=== PATIENT | male | born 1955 | race Caucasian/White ===

== ENCOUNTER 2023-09-30 06:07 | Day surgery (SDC) | payer MEDICARE, OTHER, SELFPAY ==
[2023-09-20 13:58] VITALS: BMI 25.1
[2023-09-30] VITALS (14 sets, daily range): BP systolic 109–161; BP diastolic 58–88; PULSE 63–91; RESP 14–22; TEMP 36.2–36.7; O2SAT 93–99; BMI 23.8
--- NOTE | 2023-09-30 | DI.RAD.S_ITS ---
PROCEDURE: XR HIP W PEL IF DONE RT 4V INDICATIONS: anterior rt hip TECHNIQUE: AP pelvis with lateral view(s) of the right hip(s). COMPARISON: None. FINDINGS: Bones: Multiple intraoperative, fluoroscopic images demonstrate interval placement of right total hip arthroplasty, in near anatomic alignment IMPRESSION: Status post right total hip arthroplasty. Dictated by: Sonya Bhatt M.D. on 09/30/2023 at 15:19 Approved by: Sonya Bhatt M.D. on 09/30/2023 at 15:20 .
--- NOTE | 2023-09-30 06:00 | DI.RAD.S_ITS ---
PROCEDURE: XR HIP W PEL IF DONE RT 2V INDICATIONS: ANDREW TECHNIQUE: AP pelvis and lateral view of the hip acquired. COMPARISON: [facility] [place], CR, XR PELVIS WITH LATERAL HIP RIGHT, 07/29/2023, 11:07. [facility], CR, XR PELVIS WITH BILATERAL LATERAL HIPS, 07/01/2023, 11:03. [facility], CR, XR HIP W PEL IF DONE RT 4V, 09/30/2023, 9:08. FINDINGS: Bones: Patient is status post right hip arthroplasty, with hardware components in expected positions. The hip joint appears congruent. The visualized bony structures appear intact. Soft tissues: Overlying postoperative changes are noted. No suspicious soft tissue densities. IMPRESSION: Expected post-operative appearance of a hip arthroplasty. Dictated by: Maycol Tee M.D. on 09/30/2023 at 17:42 Approved by: Maycol Tee M.D. on 09/30/2023 at 17:42
[2023-09-30] MEDS: LACTATED RINGERS 1,000 ML 42 ML IV ×2 (06:54→09:37)
[2023-09-30] MEDS: MELOXICAM 7.5 MG TABLET PO (06:57)
[2023-09-30] MEDS: ACETAMINOPHEN 325 MG TABLET 975 MG PO (06:57)
--- NOTE | 2023-09-30 07:49 | PM.PREOP ---
Pre-operative Note Interval Note History & Physical reviewed/Exam performed by Physician: Yes Changes to H&P: No
[2023-09-30] MEDS: CEFAZOLIN 2 GM/100 ML PREMIX 100 ML IV ×3 (08:21→23:05)
[2023-09-30] MEDS: TRANEXAMIC ACID 1,000 MG VIAL 1000 MG INJ ×2 (08:21→09:35)
--- NOTE | 2023-09-30 08:51 | SUR.OPER ---
Supine on padded OR bed, head on pillow, arms secured on padded arm boards at <90 degrees abduction, legs uncrossed, safety belt at thigh, tape over blanket over lower legs.
[2023-09-30] MEDS: ROPIVACAINE/EPI/CLONIDINE/KET 50 ML SYRINGE INJ (09:00)
--- NOTE | 2023-09-30 09:51 | PM.OP.1 ---
Operative Date/Time/Diagnoses Date of procedure: 09/30/23 Pre-op diagnosis: Right hip osteoarthritis Post-op diagnosis: same Procedure & Clinicians Procedure: Right total hip arthroplasty Same procedure as scheduled: Yes Surgeon: Marlon Shelton Electric Repair Supervisor: Salvador Mccracken Anesthesia Type: General and Local Operative Notes Estimated Blood Loss (mL): 200 Procedure in detail: Right Uncemented Direct Anterior Total Hip Arthroplasty: Implants: Right Depuy Total Hip Arthroplasty: Depuy [place] Gription size 58 cup? Depuy Actis femoral stem size 7 high offset? 36 mm +5 ceramic femoral head? Procedure Summary: This 67-year-old male patient had significant osteophytes around his acetabulum which required resection in order to gain access with the initial reamers. His templated had indicated he would likely be appropriate for a 58 mm cup which was placed. This had a good pinch fit and did not require screws for supplemental fixation. Large inferior osteophytes were removed following cup placement. He weighs 175 lb and did not have an especially muscular thigh so no conjoined tendon release was necessary to gain access to the femoral canal. He had been templated for a 6 high stem, however this sank significantly below his neck cut so I upsized to a size 7. I initially trialed with a +1.5 head which was loose during reduction and could dislocate with external rotation. I therefore upsized to a +5 head trial. This had appropriate stability leg lengths offset so those implants were placed. Procedure in Detail: This patient was seen preoperatively and evaluated for hip pain which was refractory to numerous nonoperative treatment modalities. Their hip pain correlated with radiographic changes demonstrating significant degeneration in the hip joint. The risks and benefits of continued nonoperative management versus operative management were discussed at length and all of the patient?s questions were answered. Additional educational materials providing further details beyond our discussion in clinic were provided via a publicly available patient education video which included the incidence of medical complications associated with total hip arthroplasty, reasons for revision following total hip arthroplasty, and patient satisfaction rates following total hip arthroplasty. That video can be accessed at [email or web address] . With this understanding of the risks inherent to the procedure, the patient elected to move forward with operative management. Following preoperative optimization, the patient was scheduled for surgery. The patient was met in the preoperative holding area the day of the procedure and all questions were answered. The patient?s nares were swabbed with betadine in order to decolonize them from MRSA. Informed consent was signed and the operative limb was marked with indelible ink.? The patient was brought back to the operating room where anesthesia was induced. The patient was transferred to the [place] table and all bony prominences were padded. The operative site was prepped and draped in the usual sterile fashion. Prior to incision, tranexamic acid and cefazolin were administered. Operative templating images were displayed demonstrating the anticipated implant sizes and correct operative extremity. A timeout procedure was performed verifying the patient?s identity, medical comorbidities, allergies, relevant medications, anesthesia type and the surgical plan. All present were in agreement. The assistance of a physician assistant professor of forestry was required for positioning, room setup, soft tissue retraction and wound closure. Without this assistance, the procedure would have been significantly more challenging and time consuming.?? A direct anterior approach to the hip was utilized. This was performed with a longitudinal incision through a Heuter interval. The incision was planned 2 cm distal and 2 cm lateral to the ASIS extending towards the lateral patella, in line with the muscle body of the TFL. Following incision, the subcutaneous tissue was dissected while taking care to avoid injury to the lateral femoral cutaneous nerve. The fascia overlying the TFL was identified by dissecting off the overlying fat and identifying perforating vessels to the TFL. The TFL fascia was incised and dissected away from the medial border of the TFL. A cobra retractor was placed over the superior femoral neck between the abductors and the hip capsule and used to reflect the TFL laterally. A [place] self-retainer was then placed in the distal aspect of the wound between the TFL and the rectus femoris. This was tensioned to open up the direct anterior interval and the lateral circumflex vessels were identified and coagulated using electrocautery. The floor of the TFL fascia was incised, exposing the pericapsular fat overlying the hip capsule. A second cobra retractor was placed on the inferior femoral neck. A double-bent soft tissue retractor was placed on the anterior wall of the acetabulum and used to tension the reflected head of rectus femoris, which was then released in order to limit soft tissue tension. A capsulotomy was made in the midline of the anterior hip capsule in line with the femoral neck ending at the vastus tubercle. The double-bent retractor was removed in order to limit the amount of time that a soft tissue retractor remained on the anterior wall and protect the femoral nerve. Tag stitches were placed in the superior and inferior leaflets of the hip capsule. An [place] soft tissue retractor was introduced over the tag stitches and tensioned in the interval between the rectus femoris and the TFL in order to retract and protect those muscles. The cobra retractors were replaced intracapsularly, with one over the superior neck in the pocket created by the base of the greater trochanter and the other on the femoral head. The capsulotomy was extended laterally to the base of the greater trochanter and medially to the lesser trochanter. This required externally rotating the hip. Once the lesser trochanter had been identified, a neck cut was planned according to measurements from preoperative templating. A ruler was cut at the length measured between the superior aspect of the lesser trochanter and the collar of the prosthesis. This line was extended towards the inferior aspect of the lateral cobra retractor to plan a cut which would leave minimal residual femoral neck laterally. The neck was cut at 60 degrees of external rotation along that line. A second cut was performed to remove a large napkin ring and facilitate head extraction. The napkin ring cut and femoral head were removed.?? A broad anterior wall retractor was placed between the labrum and the anterior capsule so that the anterior capsule would prevent capturing and pinching the femoral nerve anteriorly. An additional retractor was placed on the posterior wall. External rotation and traction were applied through the [place] table so that the cut surface of the femoral neck would not restrict access to the acetabulum. The labrum was excised sharply and the pulvinar was excised with electrocautery to limit bleeding from branches of the obturator artery. Acetabular reamers were selected based on preoperative templating and measurements of the excised femoral head. These were introduced into the acetabulum. Fluoroscopy was utilized to replicate a standing AP pelvis radiograph by centering over the pelvis, rotating until there was appropriate symmetry between the obturator foramen, and introducing caudal tilt to match the position of the pubic symphysis relative to the sacrococcygeal junction according to the patient?s anatomy. Fluoroscopy was utilized to ensure appropriate reaming depth. Once satisfied with the reaming depth corresponding to the preoperative template and the pinch fit between the columns, an appropriate sized acetabular cup was selected which would provide 1 mm of press-fit. This cup was introduced and manipulated until appropriate abduction and anteversion angles were obtained with careful attention to appropriate abduction and anteversion angles as evaluated by the position of the cup relative to the anterior and posterior burrows of the acetabulum and the AP fluoroscopy which recreated the patient?s standing radiograph. The cup was impacted into place. Peripheral osteophytes were removed. The acetabular liner was then placed with care to ensure locking of the locking mechanism.? Attention was then turned to the femur. All retractors were removed, traction was released, a retractor was placed in the interval between the hip capsule and the gluteus minimus, and the hip was externally rotated to 90 degrees. Traction was applied through the [place] table to tension the lateral capsule and this was released using electrocautery. Traction was released and a [place] hook was placed posteriorly around the proximal femur at the level of the vastus ridge. The table height was lowered in order to restrict the tension on the anterior structures during hip hyperextension to limit the risk of femoral nerve palsy. With traction off and the hip at 90 degrees of external rotation, the hip was hyperextended and adducted while manually elevating the femur away from the acetabulum with the [place] hook to ensure it would not be caught behind the greater trochanter. An asymmetric retractor was placed over the calcar and a broad double-pronged retractor was placed over the greater trochanter. The tag stitch capturing the lateral leaflet of the capsule was moved to the medial side, leaving the conjoined and piriformis tendons isolated in the face of the greater trochanter. The hip was externally rotated and elevated. A release of the conjoined tendon was not necessary in order to obtain adequate exposure for broaching. The canal was opened with an opening broach and a rasp was used to remove cancellous bone. A rongeur was used to remove the residual lateral bone at the base of the greater trochanter to avoid placing the stem in varus. The femur was then broached to the appropriate sized stem yielding good rotational fit and fill of the canal as well as appropriate version of the stem trial. Neck and head trials were placed, all retractors were removed and the hip was returned to neutral abduction and extension. I then reduced the hip. An AP pelvis fluoroscopic image matching the preoperative standing radiograph was obtained with both lesser trochanters visible and both hips in 40 degrees of external rotation. This demonstrated appropriate leg lengths while using a long metal bar to trace across the transitional line to limit the effect of fluoroscopic distortion. An AP hip fluoroscopic image was obtained with the hip in neutral rotation which demonstrated appropriate canal fill. Hip stability was evaluated with 105 degrees of external rotation and a 45 degree drop test which demonstrated no instability. The hip was dislocated and I returned to the broaching position. The definitive stem was placed and the trunnion was cleaned and dried. I placed a ceramic head onto the trunnion and impacted it into place on the Vazquez taper.?? All retractors were removed and the hip was reduced. A dilute mixture of betadine and peroxide was used to bathe the soft tissues during final fluoroscopic assessment. Appropriate component positioning was confirmed on an AP pelvis radiograph with the operative and nonoperative legs in 40 degrees of external rotation, evaluating leg length and offset. Appropriate stem fill was evaluated on an AP hip radiograph with the operative leg in neutral rotation. No fractures were identified on these radiographs. Stability was satisfactory with a 105 degree external rotation test as well as a 45 degree drop test. The hip was copiously irrigated with pulse lavage. The capsule was closed with absorbable interrupted suture. The TFL fascia was closed with barbed suture while carefully protecting the lateral femoral cutaneous nerve from entrapment. A mixture of Ropivacaine, Epinephrine, Clonidine and Toradol was infiltrated throughout the soft tissues. The skin was closed with 2-0 and 3-0 sutures. Surgical glue was applied and a soft dressing was placed.??The sponge, instrument and needle counts were reported as being correct at the end of the case.??No obvious complications occurred. The patient was transferred from the [place] table back to a stretcher. The patient emerged from anesthesia without difficulty and was taken to the PACU in a stable condition.? Plan for aftercare: Anterior hip precautions Weightbearing as tolerated Aspirin 81 twice per day for DVT prophylaxis Multimodal pain regimen with no IV opioids ordered Patient is hopeful to discharge today. He lives in [place] and we will require a ferry trip home. The last ferry of the day today leaves at 8:20 p.m. If he has mobilized well with physical therapy and is otherwise doing well, we can try to get him discharged in time to get home on that boat. Follow up at [facility] in 2 weeks Detailed postoperative instructions available at [email or web address]
[2023-09-30] MEDS: hydrOXYzine 50 MG/ML INJ IM (10:23)
[2023-09-30] MEDS: OXYCODONE IR 5 MG TABLET PO (10:24)
[2023-09-30] MEDS: HYDROMORPHONE 1 MG INJ IV (10:24)
[2023-09-30] MEDS: ONDANSETRON 4 MG/2 ML INJ IV (10:24)
[2023-09-30] MEDS: LACTATED RINGERS 1,000 ML 100 ML IV (11:12)
[2023-09-30] MEDS: TRAMADOL 50 MG TABLET PO (11:12)
[2023-09-30] MEDS: IBUPROFEN 600 MG TABLET PO ×3 (11:12→23:05)
[2023-09-30] MEDS: ACETAMINOPHEN 325 MG TABLET 650 MG PO ×3 (11:13→23:06)
--- NOTE | 2023-09-30 14:57 | P.DS_ITS ---
History of Present Illness History of Present Illness Date Patient Seen: 09/30/23 Time Patient Seen: 14:57 Chief complaint: Hip pain Narrative: Hip pain is mild. Numbness tingling right has not yet been to urinate. Has not yet therapy. Patient has his home available to assist him. Discharge Providers Provider Discharge Date: 09/30/23 Primary care physician: Gary Land MD Consults: 09/22/23 12:43 Consult to Anesthesiology Routine Comment: Consulting Provider: Anesthesiologist Reason for consultation: PAC courstesy re: Abnormal pre-op EKG 09/30/23 06:00 Consult to Anesthesiology Routine Comment: Consulting Provider: Anesthesiologist Reason for consultation: Regional block for post operative pain control Has provider been notified: No 09/30/23 10:55 Consult to Discharge Planning Routine Comment: Consult to Occupational Therapy Evaluate & Treat Comment: Physician Instructions: Evaluate and treat Consult to Physical Therapy Evaluate & Treat Comment: Physician Instructions: post op ANDREW protocol Discharge provider: Salvador Mccracken PA-C Summary Hospital Course Discharge Diagnosis: Right hip osteoarthritis Hospital Course: Right total hip arthroplasty Same procedure as scheduled: Yes Surgeon: Marlon Shelton Rail Flaw Detector Operator: Salvador Mccracken Anesthesia Type: General and Local Operative Notes Estimated Blood Loss (mL): 200 Procedure in detail: Right Uncemented Direct Anterior Total Hip Arthroplasty: Implants: Right Depuy Total Hip Arthroplasty: * Depuy [place] Gription size 58 cup? * Depuy Actis femoral stem size 7 high offset? * 36 mm +5 ceramic femoral head? Patient admitted to the hospital for right total hip arthroplasty. Patient consented to the same. Patient underwent right total hip arthroplasty anterior approach this morning. Patient back in his room recover well as in stable condition. Patient will mobilize with physical therapy. Anterior hip precautions. Multimodal pain management. Keep dressing clean and dry. Aspirin 81 mg b.i.d. for DVT prophylaxis. Patient may be discharged home today after physical therapy if safe for home environment. Status at Discharge Cognitive/behavioral status at discharge: at baseline, oriented Functional status at discharge: uses cane/walker Overall status at discharge: patient is progressing back to baseline Exam Vital Signs (past 8 hours): - 09/30/23 10:07 09/30/23 10:12 09/30/23 10:26 Temperature 98.1 F 98.1 F 98.0 F Pulse Rate 69 69 69 Respiratory Rate 18 14 15 Blood Pressure 158/70 H 161/88 H 159/58 H Pulse Oximetry 97 98 96 Oxygen Delivery Method Room Air Room Air Room Air Oxygen Flow Rate 09/30/23 10:34 09/30/23 10:40 09/30/23 10:45 Temperature 97.8 F 97.4 F L Pulse Rate 71 66 79 Respiratory Rate 14 17 22 Blood Pressure 142/67 H 126/59 L 125/59 L Pulse Oximetry 97 98 97 Oxygen Delivery Method Room Air Room Air Oxygen Flow Rate 0 09/30/23 10:50 09/30/23 11:15 09/30/23 11:45 Temperature 97.4 F L 97.5 F L 97.6 F Pulse Rate 79 78 89 Respiratory Rate 14 18 16 Blood Pressure 125/59 L 129/68 137/80 Pulse Oximetry 97 93 99 Oxygen Delivery Method Oxygen Flow Rate 0 0 0 09/30/23 12:45 09/30/23 13:45 Temperature Pulse Rate 88 91 H Respiratory Rate 15 16 Blood Pressure 113/61 127/71 Pulse Oximetry 96 97 Oxygen Delivery Method Oxygen Flow Rate 0 0 Oxygen Delivery Method Room Air Oxygen Flow Rate 0 Narrative Exam Narrative: 67-year-old male resting comfortably in bed in no apparent distress. Dressing is clean, dry and intact. Motor functions intact distal right lower extremity. Sensation grossly intact to light touch right lower extremity. Const General: cooperative and comfortable Nutritional Appearance: average body habitus Orientation: alert Resp Effort & Inspection: normal respiratory effort and able to speak in complete sentences [facility] Medical History History of COVID-19 Osteoarthritis HLD (hyperlipidemia) HTN (hypertension) Surgical History Hx of hernia repair (2013) Social History household members: spouse Smoking Status: Former smoker alcohol intake: current Discharge Assessment & Plan Assessment and Plan Assessment: Patient progressing as expected Plan of Treatment: Weightbearing as tolerated, anterior hip precautions Aspirin 81 mg b.i.d. for DVT prophylaxis Multimodal pain management Patient will discharge home today after physical therapy if safe for home environment Discharge Plan Discharge Plan Patient Disposition: Home Discharge orders & Medications Discharge Orders: Discharge (Order); Ordered 09/30/23 Ordered By: Salvador Mccracken Prescriptions: Continued atorvastatin 80 mg Tablet 80 mg PO QPM lisinopril 40 mg Tablet 40 mg PO DAILY Follow up/Referrals: Marlon Shelton MD [Physician] - (Two weeks as scheduled) Gary Land MD [Primary Care Provider] - Diet/Activity/Treatments Diet: Diet as Tolerated Activity: Anterior hip precautions Other treatments: [email or web address] Skin/Wound/Dressing Care Report to your healthcare provider any signs of infection, such as:: chills, fever, night sweats, increased pain, unusual drainage and unusual redness Dressing: Keep dressing clean and dry Visit Report/Discharge Packet Instructions: DI for Hip Replacement, DI for Prescription Opioid Use Stand Alone Forms: Patient Portal/API, Surgery Discharge Discharge Data Primary Care Provider: Gary Land Attending Provider: Marlon Shelton
--- NOTE | 2023-09-30 15:21 | PM.PN.1 ---
Subjective Subjective Interval history: Patient seen postoperatively. Flexing and extending hallux ankle and knee. Dressing clean dry and intact. Pain well controlled. Ice in place. Patient very eager to go home today if at all possible. Still needs to work with physical therapy and have return of spontaneous voiding. The [place] back [place] leaves at 8:20 p.m. so if he is going to discharge home today we will need to have things done in time to get him onto the boat. We will continue working in that direction. Exam Vital Signs (past 8 hours): - 09/30/23 10:07 09/30/23 10:12 09/30/23 10:26 Temperature 98.1 F 98.1 F 98.0 F Pulse Rate 69 69 69 Respiratory Rate 18 14 15 Blood Pressure 158/70 H 161/88 H 159/58 H Pulse Oximetry 97 98 96 Oxygen Delivery Method Room Air Room Air Room Air Oxygen Flow Rate 09/30/23 10:34 09/30/23 10:40 09/30/23 10:45 Temperature 97.8 F 97.4 F L Pulse Rate 71 66 79 Respiratory Rate 14 17 22 Blood Pressure 142/67 H 126/59 L 125/59 L Pulse Oximetry 97 98 97 Oxygen Delivery Method Room Air Room Air Oxygen Flow Rate 0 09/30/23 10:50 09/30/23 11:15 09/30/23 11:45 Temperature 97.4 F L 97.5 F L 97.6 F Pulse Rate 79 78 89 Respiratory Rate 14 18 16 Blood Pressure 125/59 L 129/68 137/80 Pulse Oximetry 97 93 99 Oxygen Delivery Method Oxygen Flow Rate 0 0 0 09/30/23 12:45 09/30/23 13:45 Temperature Pulse Rate 88 91 H Respiratory Rate 15 16 Blood Pressure 113/61 127/71 Pulse Oximetry 96 97 Oxygen Delivery Method Oxygen Flow Rate 0 0 Oxygen Delivery Method Room Air Oxygen Flow Rate 0 PFSH Medical History History of COVID-19 Osteoarthritis HLD (hyperlipidemia) HTN (hypertension) Surgical History Hx of hernia repair (2013) Social History household members: spouse Smoking Status: Former smoker alcohol intake: current
--- NOTE | 2023-09-30 17:04 | PT.IIE ---
Current Diagnoses Unilateral primary osteoarthritis, right hip (09/30/23) Surgery Performed Operation Date: 09/30/23 07:45 Actual Procedures p Total Hip Arthroplasty/Anterior Approach(Right) - Marlon Shelton MD Surgical History (Last Reviewed 09/30/23 @ 15:01 by Salvador Mccracken PA-C) Hx of hernia repair (2013) Medical History (Last Reviewed 09/30/23 @ 15:01 by Salvador Mccracken PA-C) History of COVID-19 HLD (hyperlipidemia) HTN (hypertension) Osteoarthritis Physical Therapy Inpatient Evaluation/Re-Eval M1 PT/OT-IP Prior Functional Status Start: 09/30/23 17:55 Freq: NEEDED Status: Active Protocol: Document 09/30/23 17:04 DLM (Rec: 09/30/23 18:15 DLM [id number]) Medical Review Prior Functional Status Medical History Reviewed Yes Diet/Fluid Consistency Regular Communication glasses, WFL Mobility and Gait Independent without device, ambulates in community, hip pain had started limiting his activity tolerance Activities of Daily Living and IADL's Independent Prior Functional Level (Other details) 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 2 +1 step, no rails, platform between steps Home Environment Standard Height Toilet,High Toilet,Walk in Shower Home Equipment Front Wheel Walker,Straight Cane,Bedside Commode Employment Status Retired Additional Social History Comment recliner and couch he can sleep on on the first floor of house, bedroom and shower on second floor, half bath on main level His works. He attended out-pt PT before surgery. M2 PT-IP Current Condition Start: 09/30/23 17:55 Freq: NEEDED Status: Active Protocol: Document 09/30/23 17:04 DLM (Rec: 09/30/23 18:15 DLM [id number]) Physical Therapy Current Condition Current Condition Evaluation Date 09/30/23 Treatment Diagnosis right ANDREW with anterior approach, impaired gait Onset Date 09/30/23 M3 PT-IP Subjective Start: 09/30/23 17:55 Freq: NEEDED Status: Active Protocol: Document 09/30/23 17:04 DLM (Rec: 09/30/23 18:15 DLM [id number]) Subjective Physical Therapy Visit Type Type Initial Evaluation Visit Start Time 16:00 Visit Stop Time 17:04 Notes 64 minutes Number of CLAIM PROCESSOR Visits 0 Physical Therapy Visit Comments Patient Comments He is eager to go home today. He has not been able to urinate yet. They borrowed equipment for home from friends. Patient Goals Discharge home Therapy Pain Assessment Pain When Pain Assessed During Mobility Pain Present Pain Present Pain Reported Location Right Hip Intensity 3 Scale Used Numeric (0 - 10) Description Aching,Tender,With Movement Pain Behaviors Guarding Pain Management Techniques Apply Cold,Re-positioning M4 PT-IP Mobility and Gait Start: 09/30/23 17:55 Freq: NEEDED Status: Active Protocol: Document 09/30/23 17:04 DL (Rec: 09/30/23 18:15 [facility] [id number]) PT-Bed Mobility Assessment Supine to Sit Supine to Sit Independent Sit to Supine Sit to Supine Independent Scooting Scooting to Edge of Bed Independent Scooting Up and Down in Bed Independent PT-Transfer Assessment Sit to and From Stand Sit to and from Stand Independent,Use of Upper Extremities Equipment Transfer Assistive Device Gait Belt,Front Wheeled Walker Transfers Transfer Destination Bed,Chair Transfer Technique Stand Step Pivot Transfer Ability Level of Assist Standby Assistance,Use of Upper Extremities Comments Mobility Comments Pt up to toilet to attempt to urinate but was not able to void. Pt left up in the recliner this visit with his visiting. Gait Assessment Gait Gait Assistance Required: Standby Assistance Distance (Feet) 200 Able to Maintain Weight Bearing Status Yes During Gait Assistive Devices Assistive Device Gait Belt,Front Wheeled Walker Gait Deviations General Gait Pattern Decreased Stride Length,Step- to Gait Factors Limiting Gait Function Factors Limiting Gait Function Decreased Activity Tolerance, Decreased Strength,Limited Range of Motion,Pain,Poor Balance Comments Gait Comments He has a slow but safe gait pattern with the fWW, he tends to look down at his feet. Educated pt to look up during gait and use a slow but steady gait pattern. He showed improvements in the flow of his gait pattern with training . Stair Climbing Assessment Evaluation Level of Assist On Stairs Standby Assistance Devices Stair Climbing Assistive Devices Left Railing,Right Railing Technique/Endurance Stair Climbing Direction Ascend and Descend Stair Climbing Technique Step to Step Number of Steps Climbed 3 Query Text: Stair Climbing Set # Repetitions (reps) 1 Comments Stair Climbing Comments also up/down curb step with fWW and SBA Tolerated stairs well Discussed having his on one side and cane on the other when going up his front steps without a rail. PT-Balance Assessment Sitting Balance and Reactions Static Sitting Balance Ability Normal Dynamic Sitting Balance Ability Good Standing Balance and Reactions Static Standing Balance Ability Good Dynamic Standing Balance Ability Good Device Used FWW M5 PT-IP Objective Assessments Start: 09/30/23 17:55 Freq: NEEDED Status: Active Protocol: Document 09/30/23 17:04 DLM (Rec: 09/30/23 18:15 [facility] [id number]) Orientation Orientation/Cognition Level of Alertness Alert Orientation Name,Age,Birthday,Month,Date, Year,Day of Week,Place, Situation Language Function Ability No Deficits Noted Safety Awareness Understands Safety Issues Memory Description No Deficits Noted Gross Range of Motion Upper Extremity ROM Assessment Within Functional Limits Lower Extremity ROM Assessment Right Impaired Impairments anterior hip precautions Strength Upper Extremity Strength Assessment Within Functional Limits Lower Extremity Strength Assessment Right Impaired Hip flex at least 3+/5 with pain Knee 4/5 Ankle DF 5/5 Comments Strength Comments post-op pain right hip Coordination Assessment Gross Coordination Gross Coordination WNL Sensation Assessment Sensation Gross Sensation WNL Muscle Tone Muscle Tone WNL Yes M6 PT-IP Treatment Start: 09/30/23 17:55 Freq: NEEDED Status: Active Protocol: Document 09/30/23 17:04 DLM (Rec: 09/30/23 18:15 [facility] [id number]) Physical Therapy Treatment Education Education Provided Precautions,Weight Bearing Status,Post-Op Packet,Safety Other Treatments Other Treatment Performed his was present today and participated in education M7 PT-IP Assessment and Plan Start: 09/30/23 17:55 Freq: NEEDED Status: Active Protocol: Document 09/30/23 17:04 DLM (Rec: 09/30/23 18:15 DL [id number]) PT Summary Assessment and Plan Summary Impairments Pain,ROM,Strength,Balance, Transfers,Gait,Activity Tolerance Progress Towards Goals Safe For Discharge Assessment Summary Primo is alert and eager to go home after surgery. He was educated in his post-op precautions and home exercise program. He was able to ambulate in the [place] with the FWW and a slow but safe gait pattern. He was able to go up and down stairs with good tolerance. He verbalizes understanding of his hip precautions. Pt and his feel safe for pt to go home today. Recommend home when medically cleared. Informed his nurse that pt is cleared by Physical Therapy for discharge home. Pt has not been able to urinate yet which may delay his discharge today . Frequency of Treatment Frequency Of Treatment Discharge Treatment Plan Other Recommendations and Next Treatment completed training and Focus education this visit Precautions Anterior Hip Precautions No Hip Extension Weight Bearing Status Weight Bearing Status Weight Bear as Tolerated Allowed Weight Bearing Amount (enter % right LE with fWW or #) (%) Recommendations To Nursing Amount of Assist Needed Standby Assistance Discharge Recommendations PT Discharge Recommendations Home with Assistance, Outpatient PT Other Discharge Recommendations home with his to assist as needed Transportation Needs at Discharge Private Vehicle
--- NOTE | 2023-09-30 17:04 | PT.IIE ---
Current Diagnoses Unilateral primary osteoarthritis, right hip (09/30/23) Surgery Performed Operation Date: 09/30/23 07:45 Actual Procedures p Total Hip Arthroplasty/Anterior Approach(Right) - Marlon Shelton MD Surgical History (Last Reviewed 09/30/23 @ 15:01 by Salvador Mccracken PA-C) Hx of hernia repair (2013) Medical History (Last Reviewed 09/30/23 @ 15:01 by Salvador Mccracken PA-C) History of COVID-19 HLD (hyperlipidemia) HTN (hypertension) Osteoarthritis Physical Therapy Inpatient Evaluation/Re-Eval M1 PT/OT-IP Prior Functional Status Start: 09/30/23 17:55 Freq: NEEDED Status: Active Protocol: Document 09/30/23 17:04 DLM (Rec: 09/30/23 18:15 DLM [id number]) Medical Review Prior Functional Status Medical History Reviewed Yes Diet/Fluid Consistency Regular Communication glasses, WFL Mobility and Gait Independent without device, ambulates in community, hip pain had started limiting his activity tolerance Activities of Daily Living and IADL's Independent Prior Functional Level (Other details) 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 2 +1 step, no rails, platform between steps Home Environment Standard Height Toilet,High Toilet,Walk in Shower Home Equipment Front Wheel Walker,Straight Cane,Bedside Commode Employment Status Retired Additional Social History Comment recliner and couch he can sleep on on the first floor of house, bedroom and shower on second floor, half bath on main level His works. He attended out-pt PT before surgery. M1 PT/OT-IP Prior Functional Status Start: 09/30/23 17:56 Freq: NEEDED Status: Active Protocol: Document 09/30/23 17:56 [facility] (Rec: 09/30/23 18:08 [facility] [id number]) Medical Review Prior Functional Status Communication Independent Mobility and Gait Independent with no device. Activities of Daily Living and IADL's Pt able to do ADL and IADL needs. Social History Household Members spouse Living Arrangements House Number of Floors (Floors) Two Floors Number of Stairs To Enter/Railing? 2 step and then another platform step to get into the house. Pt to stay on the main level. Home Environment Walk in Shower Home Equipment Front Wheel Walker,Straight Cane,Bedside Commode M2 PT-IP Current Condition Start: 09/30/23 17:55 Freq: NEEDED Status: Active Protocol: Document 09/30/23 17:04 DLM (Rec: 09/30/23 18:15 DL [id number]) Physical Therapy Current Condition Current Condition Evaluation Date 09/30/23 Treatment Diagnosis right ANDREW with anterior approach, impaired gait Onset Date 09/30/23 M3 PT-IP Subjective Start: 09/30/23 17:55 Freq: NEEDED Status: Active Protocol: Document 09/30/23 17:04 DLM (Rec: 09/30/23 18:15 DL [id number]) Subjective Physical Therapy Visit Type Type Initial Evaluation Visit Start Time 16:00 Visit Stop Time 17:04 Notes 64 minutes Number of TRAINER Visits 0 Physical Therapy Visit Comments Patient Comments He is eager to go home today. He has not been able to urinate yet. They borrowed equipment for home from friends. Patient Goals Discharge home Therapy Pain Assessment Pain When Pain Assessed During Mobility Pain Present Pain Present Pain Reported Location Right Hip Intensity 3 Scale Used Numeric (0 - 10) Description Aching,Tender,With Movement Pain Behaviors Guarding Pain Management Techniques Apply Cold,Re-positioning M4 PT-IP Mobility and Gait Start: 09/30/23 17:55 Freq: NEEDED Status: Active Protocol: Document 09/30/23 17:04 DLM (Rec: 09/30/23 18:15 DL [id number]) PT-Bed Mobility Assessment Supine to Sit Supine to Sit Independent Sit to Supine Sit to Supine Independent Scooting Scooting to Edge of Bed Independent Scooting Up and Down in Bed Independent PT-Transfer Assessment Sit to and From Stand Sit to and from Stand Independent,Use of Upper Extremities Equipment Transfer Assistive Device Gait Belt,Front Wheeled Walker Transfers Transfer Destination Bed,Chair Transfer Technique Stand Step Pivot Transfer Ability Level of Assist Standby Assistance,Use of Upper Extremities Comments Mobility Comments Pt up to toilet to attempt to urinate but was not able to void. Pt left up in the recliner this visit with his visiting. Gait Assessment Gait Gait Assistance Required: Standby Assistance Distance (Feet) 200 Able to Maintain Weight Bearing Status Yes During Gait Assistive Devices Assistive Device Gait Belt,Front Wheeled Walker Gait Deviations General Gait Pattern Decreased Stride Length,Step- to Gait Factors Limiting Gait Function Factors Limiting Gait Function Decreased Activity Tolerance, Decreased Strength,Limited Range of Motion,Pain,Poor Balance Comments Gait Comments He has a slow but safe gait pattern with the fWW, he tends to look down at his feet. Educated pt to look up during gait and use a slow but steady gait pattern. He showed improvements in the flow of his gait pattern with training . Stair Climbing Assessment Evaluation Level of Assist On Stairs Standby Assistance Devices Stair Climbing Assistive Devices Left Railing,Right Railing Technique/Endurance Stair Climbing Direction Ascend and Descend Stair Climbing Technique Step to Step Number of Steps Climbed 3 Query Text: Stair Climbing Set # Repetitions (reps) 1 Comments Stair Climbing Comments also up/down curb step with fWW and SBA Tolerated stairs well Discussed having his on one side and cane on the other when going up his front steps without a rail. PT-Balance Assessment Sitting Balance and Reactions Static Sitting Balance Ability Normal Dynamic Sitting Balance Ability Good Standing Balance and Reactions Static Standing Balance Ability Good Dynamic Standing Balance Ability Good Device Used FWW M5 PT-IP Objective Assessments Start: 09/30/23 17:55 Freq: NEEDED Status: Active Protocol: Document 09/30/23 17:04 DL (Rec: 09/30/23 18:15 [facility] [id number]) Orientation Orientation/Cognition Level of Alertness Alert Orientation Name,Age,Birthday,Month,Date, Year,Day of Week,Place, Situation Language Function Ability No Deficits Noted Safety Awareness Understands Safety Issues Memory Description No Deficits Noted Gross Range of Motion Upper Extremity ROM Assessment Within Functional Limits Lower Extremity ROM Assessment Right Impaired Impairments anterior hip precautions Strength Upper Extremity Strength Assessment Within Functional Limits Lower Extremity Strength Assessment Right Impaired Hip flex at least 3+/5 with pain Knee 4/5 Ankle DF 5/5 Comments Strength Comments post-op pain right hip Coordination Assessment Gross Coordination Gross Coordination WNL Sensation Assessment Sensation Gross Sensation WNL Muscle Tone Muscle Tone WNL Yes M6 PT-IP Treatment Start: 09/30/23 17:55 Freq: NEEDED Status: Active Protocol: Document 09/30/23 17:04 DL (Rec: 09/30/23 18:15 [facility] [id number]) Physical Therapy Treatment Education Education Provided Precautions,Weight Bearing Status,Post-Op Packet,Safety Other Treatments Other Treatment Performed his was present today and participated in education M7 PT-IP Assessment and Plan Start: 09/30/23 17:55 Freq: NEEDED Status: Active Protocol: Document 09/30/23 17:04 DLM (Rec: 09/30/23 18:15 DLM [id number]) PT Summary Assessment and Plan Summary Impairments Pain,ROM,Strength,Balance, Transfers,Gait,Activity Tolerance Progress Towards Goals Safe For Discharge Assessment Summary Primo is alert and eager to go home after surgery. He was educated in his post-op precautions and home exercise program. He was able to ambulate in the [place] with the FWW and a slow but safe gait pattern. He was able to go up and down stairs with good tolerance. He verbalizes understanding of his hip precautions. Pt and his feel safe for pt to go home today. Recommend home when medically cleared. Informed his nurse that pt is cleared by Physical Therapy for discharge home. Pt has not been able to urinate yet which may delay his discharge today . Frequency of Treatment Frequency Of Treatment Discharge Treatment Plan Other Recommendations and Next Treatment completed training and Focus education this visit Precautions Anterior Hip Precautions No Hip Extension Weight Bearing Status Weight Bearing Status Weight Bear as Tolerated Allowed Weight Bearing Amount (enter % right LE with fWW or #) (%) Recommendations To Nursing Amount of Assist Needed Standby Assistance Discharge Recommendations PT Discharge Recommendations Home with Assistance, Outpatient PT Other Discharge Recommendations home with his to assist as needed Transportation Needs at Discharge Private Vehicle
[2023-09-30] MEDS: ATORVASTATIN 20 MG TABLET 80 MG PO (17:09)
--- NOTE | 2023-09-30 17:38 | OT.IP.EVAL ---
Current Diagnoses Unilateral primary osteoarthritis, right hip (09/30/23) Surgery Performed Operation Date: 09/30/23 07:45 Actual Procedures p Total Hip Arthroplasty/Anterior Approach(Right) - Marlon Shelton MD Past Medical History (Last Reviewed 09/30/23 @ 15:01 by Salvador Mccracken PA-C) History of COVID-19 HLD (hyperlipidemia) HTN (hypertension) Osteoarthritis Surgical History (Last Reviewed 09/30/23 @ 15:01 by Salvador Mccracken PA-C) Hx of hernia repair (2013) Occupational Therapy Inpatient Evaluation/Re-Eval M1 PT/OT-IP Prior Functional Status Start: 09/30/23 17:56 Freq: NEEDED Status: Active Protocol: Document 09/30/23 17:56 [facility] (Rec: 09/30/23 18:08 [facility] [id number]) Medical Review Prior Functional Status Communication Independent Mobility and Gait Independent with no device. Activities of Daily Living and IADL's Pt able to do ADL and IADL needs. Social History Household Members spouse Living Arrangements House Number of Floors (Floors) Two Floors Number of Stairs To Enter/Railing? 2 step and then another platform step to get into the house. Pt to stay on the main level. Home Environment Walk in Shower Home Equipment Front Wheel Walker,Straight Cane,Bedside Commode M2 OT-IP Current Condition Start: 09/30/23 17:56 Freq: Status: Active Protocol: Document 09/30/23 17:56 [facility] (Rec: 09/30/23 18:08 [facility] [id number]) Occupational Therapy Current Condition Current Condition Evaluation Date 09/30/23 Treatment Diagnosis S/P R ANDREW Anterior approach Diagnosis Onset Date 09/30/23 Post Operative Precautions Anterior Hip Precautions No Hip Extension,No Hip External Rotation M3 OT- IP Subjective and Pain Start: 09/30/23 17:56 Freq: Status: Active Protocol: Document 09/30/23 17:56 [facility] (Rec: 09/30/23 18:08 [facility] [id number]) OT- Subjective Occupational Therapy Visit Type Type Initial Evaluation Visit Start Time 17:10 Visit Stop Time 17:28 Occupational Therapy Visit Comments Patient Comments Pt wanting to try to use the bathroom. Patient/Caregiver Goals TO go home. OT Pain Assessment Pain When Pain Assessed During Mobility Pain Present Pain Present Pain Reported M4 OT- IP ADL's Start: 09/30/23 17:56 Freq: Status: Active Protocol: Document 09/30/23 17:56 [facility] (Rec: 09/30/23 18:08 [facility] [id number]) OT SFB-Guul-Ijotakp General Evaluation Self-Feeding Ability Independent OT ADL-Grooming General Evaluation Grooming Ability Independent OT ADL-Dressing General Eval Lower Body Dressing Ability Maximum Assistance Areas Needing Assistance Socks Comments OT Dressing Comments Able to show pt use of sock aid and cigarette packer, pt states his to assist. Educated to be mindful of his RLE positioning for ADl and mobility needs. OT ADL-Toileting General Evaluation Toileting Ability Standby Assistance Comments OT Toileting Comments Pt standing and then trying to sit to urinate but unsuccessful. OT ADL-Bathing Comments OT Bathing Comments Pt states shower too small for a shower chair. Educated on care for his dressing while showering. Pt's states will asisst. M5 OT- IP IADL's Start: 09/30/23 17:56 Freq: Status: Active Protocol: Document 09/30/23 17:56 [facility] (Rec: 09/30/23 18:08 [facility] [id number]) OT-Instrumental Activities of Daily Living Deficits IADL Deficits Identified Deficits Home Safety Awareness Awareness of Need for Assistance at Home Good Awareness Ability to Problem Solve Emergency Able to Problem Solve Situations Medication Management Medication Management No Deficits Identified Money Management Money Management No Deficits Identified Meal Preparation Meal Preparation Caregiver Provides Assist Rock Worker Rock Worker Caregiver Provides Assist M6 OT- IP Functional Cognition Start: 09/30/23 17:56 Freq: Status: Active Protocol: Document 09/30/23 17:56 [facility] (Rec: 09/30/23 18:08 [facility] [id number]) Cognitive Factors Limiting Selfcare Function Cognitive Ability Level of Alertness Alert Patient Orientation Name,Age,Birthday,Month,Date, Year,Day of Week,Place, Situation Attention Span Ability Capable of Focused Attention, Capable of Sustained Attention Memory Description No Deficits Noted Safety Awareness Decreased Ability to Apply Precautions Cognitive Comments Cognitive Assessment Comments At time pt needing vc to follow his hip precautions for mobility of which leg to advance first. OT- Vision and Hearing OT- Hearing Assessment OT- Hearing Assessment WFL OT- Vision Assessment Visual Acuity Glasses All The Time M7 OT- IP Mobility and Balance Start: 09/30/23 17:56 Freq: Status: Active Protocol: Document 09/30/23 17:56 [facility] (Rec: 09/30/23 18:08 [facility] [id number]) OT-Transfer Assessment Sit to and From Stand Sit to and from Stand Standby Assistance Transfers Transfer Ability Standby Assistance Technique Transfer Destination Bed,Toilet Transfer Technique Stand Step Pivot Devices Transfer Assistive Devices Gait Belt,Front Wheeled Walker Comments Mobility Comments SBA with mobility need and use of the fww. OT- Balance Assessment Sitting Balance and Reactions Static Sitting Balance Ability Normal Dynamic Sitting Balance Ability Good Standing Balance and Reactions Static Standing Balance Ability Good Dynamic Standing Balance Ability Fair M8 OT- IP Objective Assessments Start: 09/30/23 17:56 Freq: Status: Active Protocol: Document 09/30/23 17:56 [facility] (Rec: 09/30/23 18:08 [facility] [id number]) OT Gross Range of Motion Upper Extremity Range of Motion Assessment Within Functional Limits OT Strength Upper Extremity Strength Assessment Within Functional Limits M9 OT- IP Assessment and Plan Start: 09/30/23 17:56 Freq: Status: Active Protocol: Document 09/30/23 17:56 [facility] (Rec: 09/30/23 18:08 [facility] [id number]) OT Summary Assessment and Plan Potential Rehabilitation Potential Excellent Analytic Complexity at Evaluation Low Summary OT Impairments Pain,Functional Mobility, Dressing,Toileting,Bathing, Toilet Transfers,Shower Transfers Progress Towards Goals Progressing Toward Goals,Slow Progress due to Medical Issues Assessment Summary Pt low complexity and doing well and mainly just wanting to urinate prior to going home . Pt has a supportive to assist him at this time. Pt to go home with his and have outpt PT. Goals Grooming Goal Independent Dressing Goal Independent,Orchard Worker,Sock Aid Toileting Goal Independent Bathing Goal Standby Assistance Toilet Transfer Goal Independent Shower Transfer Goal Independent Frequency of Treatment Frequency Of Treatment Once a Day Treatment Plan OT Treatment Plan ADL Training,Functional Mobility,Patient/Family Education,Discharge Planning Discharge Recommendations OT Discharge Recommendations Home with Assistance, Outpatient PT Transportation Needs at Discharge Private Vehicle
[2023-09-30] MEDS: DOCUSATE 100 MG CAPSULE PO (20:25)
[2023-09-30] MEDS: ASPIRIN EC 81 MG TABLET PO (20:25)
[2023-09-30] MEDS: TAMSULOSIN 0.4 MG CAPSULE PO (20:25)
[2023-10-01 03:30] VITALS: BP 112/63; PULSE 60; RESP 16; TEMP 36.1; O2SAT 98
[2023-10-01] MEDS: IBUPROFEN 600 MG TABLET PO (04:24)
[2023-10-01] MEDS: ACETAMINOPHEN 325 MG TABLET 650 MG PO (04:24)
[2023-10-01 05:41] LABS: Hematocrit 32.6 % (41-53); Hemoglobin 11.2 g/dL (13.5-17.5)
[2023-10-01 08:22] VITALS: BP 126/57; PULSE 66; RESP 17; TEMP 35.8; O2SAT 98
[2023-10-01] MEDS: DOCUSATE 100 MG CAPSULE PO (09:11)
[2023-10-01] MEDS: ASPIRIN EC 81 MG TABLET PO (09:11)
--- NOTE | 2023-10-01 09:21 | OT.IPNOTE ---
Pt doing well and finally able to urinate. No OT needs, discharge pt from OT.
[2023-10-01 09:41] VITALS: PULSE 89; RESP 14; O2SAT 98
--- NOTE | 2023-10-01 10:21 | P.DS_ITS ---
History of Present Illness History of Present Illness Chief complaint: Hip pain Narrative: Primo is a very pleasant 67-year-old male who is postop day # 1 status post right anterior total hip arthroplasty by Dr. Shelton. Patient states he is doing very well this morning and is eager to be discharged to home. He had acute urinary retention yesterday and had to be straight cathed last night but now reports he has urinated on his own 5 times this morning and no longer needs assistance or the walker to ambulate to the bathroom. He even urinated again during our interview this morning. Pain is [id number] and well controlled with oral pain medication. He has his postop pain medication at home already and has postop physical therapy appointments scheduled as well. Has not worked with hospital PT today but worked with them yesterday and did well, was only kept in the hospital due to the urinary retention. Lives at home with is willing and able to aid in patient's postop recovery. His ice machine, walker at home already. He denies fever, chills, chest pain, shortness breath, nausea, vomiting. Operative Date/Time/Diagnoses Date of procedure: 09/30/23 Pre-op diagnosis: Right hip osteoarthritis Post-op diagnosis: same Procedure & Clinicians Procedure: Right total hip arthroplasty Same procedure as scheduled: Yes Surgeon: Marlon Shelton Turbine Mechanic: Salvador Mccracken Anesthesia Type: General and Local Operative Notes Estimated Blood Loss (mL): 200 Procedure in detail: Right Uncemented Direct Anterior Total Hip Arthroplasty: Implants: Right Depuy Total Hip Arthroplasty: * Depuy [place] Gription size 58 cup? * Depuy Actis femoral stem size 7 high offset? * 36 mm +5 ceramic femoral head? Discharge Providers Provider Discharge Date: 10/01/23 Primary care physician: Gary Land MD Consults: 09/22/23 12:43 Consult to Anesthesiology Routine Comment: Consulting Provider: Anesthesiologist Reason for consultation: PAC courstesy re: Abnormal pre-op EKG 09/30/23 06:00 Consult to Anesthesiology Routine Comment: Consulting Provider: Anesthesiologist Reason for consultation: Regional block for post operative pain control Has provider been notified: No 09/30/23 10:55 Consult to Discharge Planning Routine Comment: Consult to Occupational Therapy Evaluate & Treat Comment: Physician Instructions: Evaluate and treat Consult to Physical Therapy Evaluate & Treat Comment: Physician Instructions: post op ANDREW protocol Discharge provider: Milagros Valencia PA-C Summary Hospital Course Discharge Diagnosis: stable s/p right anterior ANDREW Hospital Course: For course complicated by acute urinary retention postop. Exam Vital Signs (past 8 hours): - 10/01/23 03:30 10/01/23 08:22 10/01/23 09:41 Temperature 96.9 F L 96.5 F L Pulse Rate 60 66 89 Respiratory Rate 16 17 14 Blood Pressure 112/63 126/57 L Pulse Oximetry 98 98 98 Oxygen Delivery Method Room Air Oxygen Flow Rate 0 Oxygen Delivery Method Room Air Oxygen Flow Rate 0 Narrative Exam Narrative: Ambulating well without assistive devices around the room when I arrived to patient's room this morning. at bedside. No acute distress. Resp Effort & Inspection: normal respiratory effort and able to speak in complete sentences Cardio Rate: regular rate Other: Brisk capillary refill. Skin Other: Clean, dry, intact Aquacel dressing in place over the right anterior hip. No drainage. Extrem Other: 5/5 DF, PF, EHL bilaterally. Calf soft and nontender bilaterally. Gross sensation intact throughout bilateral lower extremities. Psych Appearance: grossly normal Speech and Movement: speech and movement normal Objective Labs 10/01/23 05:00 Labs: Laboratory Results - last 24 hr 10/01/23 05:00 Hgb 11.2 L Hct 32.6 L PFSH Medical History History of COVID-19 Osteoarthritis HLD (hyperlipidemia) HTN (hypertension) Surgical History Hx of hernia repair (2013) Social History household members: spouse Smoking Status: Former smoker alcohol intake: current Discharge Assessment & Plan Assessment and Plan Assessment: Stable status post right anterior total hip arthroplasty. Plan of Treatment: 1) plan to discharge to home today with . 2) continue multimodal pain management with ice to the hip for additional pain control. Has postop pain medications at home already. 3) ASA b.i.d. for DVT prophylaxis. 4) Start outpatient physical therapy to work on range of motion and mobility. Postop PT appointments are already scheduled with [facility]. Weightbearing as tolerated, maintain anterior hip precautions. 5) keep dressing intact, clean, dry until 2 week postop appointment. No soaking the incision site in pools or tubs. No topical ointments or creams to the incision site. 5) Follow up at [facility] in 2 weeks for a postop appointment and wound check. All patient's questions were answered, they demonstrates understanding and are in agreement with the plan. Call our office if any questions or concerns arise. Discharge Plan Discharge Plan Patient Disposition: Home Discharge orders & Medications Discharge Orders: Discharge (Order); Ordered 10/01/23 Ordered By: Milagros Valencia Prescriptions: Continued atorvastatin 80 mg Tablet 80 mg PO QPM lisinopril 40 mg Tablet 40 mg PO DAILY Follow up/Referrals: Marlon Shelton MD [Physician] - (Follow up at [facility] in two weeks as scheduled) Gary Land MD [Primary Care Provider] - Diet/Activity/Treatments Diet: Diet as Tolerated Activity: Weight bearing as tolerated. Maintain anterior hip precautions. Cold/Heat Therapy: Ice to the hip for additional pain control. Other treatments: [email or web address] Skin/Wound/Dressing Care Report to your healthcare provider any signs of infection, such as:: chills, fever, night sweats, unusual drainage and unusual redness Dressing: Keep dressing clean and dry until 2 week post-op appointment. No soaking the incision site in pools. Visit Report/Discharge Packet Instructions: DI for Hip Replacement, DI for Prescription Opioid Use Stand Alone Forms: Patient Portal/API, Surgery Discharge Discharge Data Primary Care Provider: Gary Land Attending Provider: Marlon Shelton
--- NOTE | 2023-10-01 11:22 | PC.NURSE ---
Patient is A&Ox4, VSS, afebrile on RA. He is ambulatory around the room using FWW and reports pain to hip 2/10. He is anxious to discharge this am. after breakfast. He tolerates the meal well denying any n/v, dizziness. Upon PA evaluation this a.m. he is cleared for d/c home, and had been cleared by PT prior for safe discharge home with . He verbalizes understanding of anterior hip precautions, site care, medications, s/sx of infection as well as follow up appointment. He is escorted via w/ch with all of his belongings including FWW, by EVENT CREW TECHNICIAN's to private vehicle with his for discharge back to [place].
--- NOTE | 2023-10-01 12:31 | CM.DANOTE ---
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 Yes Advance Directives on File No History Provided By Patient,Significant Other, Medical Record Prior Living Arrangements House Household Members spouse Type of transporation used prior to Drives own vehicle admit Independent with ADL's Yes Is patient alert and oriented? Yes Needs Assistance With Home Chores / Shopping Patient/Family Preference OP PT Therapy Barriers to Discharge No Comment Patient POD1 from right ANDREW, planned to return home with spouse to assist and has been cleared by therapies for this plan. Discharge Plan Home Transportation Arrangement Family Referrals Initiated None needed CARLOS Acharya
== END 2023-10-01 10:50 | disposition home or self-care (01) ==
LOC: OR 06:11 → AC 06:16
PROVIDERS: PCP Family Medicine; Referring Provider Orthopaedic Surgery Adult Reconstructive Orthopaedic Surgery; Visit Provider Orthopaedic Surgery Adult Reconstructive Orthopaedic Surgery
PROC: (CPT 27130; principal; 2023-09-30 07:45)
DX: M16.11 Unilateral primary osteoarthritis, right hip (principal)
CPT/HCPCS: 27130; 36415; 73502; 73503; 76000; 85014; 85018; 97110; 97116; 97162; 97165; 97535; C1776; J0330; J0690; J1100; J1170; J2405; J2704; J3010; J3410